=== PATIENT | male | born 1975 | race Caucasian/White ===

== ENCOUNTER 2023-08-08 10:29 | Emergency (ER) | payer SELFPAY ==
[2023-08-08] VITALS (15 sets, daily range): BP systolic 115–158; BP diastolic 84–96; PULSE 71–104; RESP 16; TEMP 36.8; O2SAT 93–98; BMI 31.6
--- NOTE | 2023-08-08 11:28 | ED_ITS ---
HPI - General Adult General Chief complaint: Chest Pain Stated complaint: chest pain, shortness of breath Time Seen by Provider: 08/08/23 11:28 History of Present Illness HPI narrative: c/o chest pain for the for the last few days, over by the arm pit area, tingling down left arm. pt stated they started spontaneously at work, with dizziness. pt states feeling lightheaded right now 47-year-old man presenting to the emergency department with concern of chest and arm discomfort over the last 3 days or so. Intermittently has been feeling lightheaded when ambulating. Asthma has also been flaring over the last few months. There may be an allergy trigger. Only has rescue inhaler. This chest pain quality which is not exactly specifically is at the left lateral chest and been fairly constant. Not pleuritic. Has also been experiencing some tingling in his sound left forearm and 4th and 5th fingers which were more numb yesterday than today. Not exactly reproducible. He does recall a history of carpal tunnel syndrome years ago but that apparently has resolved. Up in feeling weakness. Discomfort in his chest seems to be better when he lays down then onto his left side. Also better if he applies pressure just during to pulling at his left pectoralis. Thought maybe it hurts something. 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 Historically would not be experiencing any exercise intolerance but as noted seems more dyspneic with exertion which he has went on to asthma this point. Significant other seems to think that allergies might be playing a role in some of the symptoms. Related Data Previous Rx's Medication Instructions Recorded albuterol sulfate 2.5 mg/3 mL 2.5 mg (3 mL) inhalation Q4-6H PRN 01/10/23 (0.083 %) solution for nebulization bronchospasm #90 mL albuterol sulfate 90 mcg/actuation 2 puff PO Q4H PRN asthma #36 grams 01/10/23 aerosol inhaler amlodipine 10 mg tablet 10 mg PO DAILY #90 tabs 01/10/23 triamterene 37.5 1 tab PO DAILY #90 tabs 01/10/23 mg-hydrochlorothiazide 25 mg tablet Allergies Allergy/AdvReac Type Severity Reaction Status Date / Time No Known Allergies Allergy Verified 08/08/23 11:03 Review of Systems Status of ROS: Reports: 6 or more systems reviewed and unremarkable except as noted in History and below PFSH PFSH Medical History Urinary tract obstruction due to kidney stone ?N20.0 - Calculus of kidney (ICD-10) ?N13.8 - Other obstructive and reflux uropathy (ICD-10) Exacerbation of asthma ?J45.901 - Unspecified asthma with (acute) exacerbation (ICD-10) Social History Smoking Status: Never smoker Do you use any of these nicotine containing products: Smokeless Tobacco How often do you have a drink containing alcohol: 4 or more times a week How many standard drinks containing alcohol do you have on a typical day: 1 or 2 How often do you have six or more drinks on one occasion: Never AUDIT-C Alcohol total score: 4 Non-prescribed substance use: denies use Exam Narrative: Exam Narrative: Pleasant. NAD. Skin is warm and dry. Well-perfused peripherally without edema. Cranial nerves 2-12 intact. Lungs I think are clear but had sat up and there is some belching during the exam. Heart is in regular rate and rhythm. Abdomen is overweight soft and nontender. Palpation over the chest wall does not reproduce his discomfort. There is no supraclavicular crepitus. No exacerbation of sensory issues noted above to palpation of the ulnar groove or about the elbow otherwise. Negative Tinel's and Phalen's. No weakness. No pain or swelling to palpation in the left axilla. Strong distal pulses in the upper extremities. No edema. Const: Vital Signs, click to edit/add: Vital Signs - 24 hr 08/08/23 11:04 08/08/23 11:39 08/08/23 11:45 Temperature 98.2 F Pulse Rate 86 82 Pulse Rate [Pulse Oximeter] 104 H Respiratory Rate 16 Blood Pressure Blood Pressure [Ri ght Upper Arm] 158/96 H Pulse Oximetry 97 95 97 Oxygen Delivery Me thod Room Air 08/08/23 12:00 08/08/23 12:02 08/08/23 12:02 Temperature Pulse Rate 82 84 84 Pulse Rate [Pulse Oximeter] Respiratory Rate Blood Pressure 121/95 H 121/95 H Blood Pressure [Ri ght Upper Arm] Pulse Oximetry 97 96 96 Oxygen Delivery Me thod 08/08/23 12:15 08/08/23 12:30 08/08/23 12:31 Temperature Pulse Rate 79 78 78 Pulse Rate [Pulse Oximeter] Respiratory Rate Blood Pressure 125/84 Blood Pressure [Ri ght Upper Arm] Pulse Oximetry 97 96 93 Oxygen Delivery Me thod 08/08/23 12:45 08/08/23 13:00 08/08/23 13:01 Temperature Pulse Rate 79 73 76 Pulse Rate [Pulse Oximeter] Respiratory Rate Blood Pressure 121/85 Blood Pressure [Ri ght Upper Arm] Pulse Oximetry 98 94 96 Oxygen Delivery Me thod 08/08/23 13:15 08/08/23 13:30 08/08/23 13:31 Temperature Pulse Rate 71 73 77 Pulse Rate [Pulse Oximeter] Respiratory Rate Blood Pressure 115/90 H Blood Pressure [Ri ght Upper Arm] Pulse Oximetry 94 96 96 Oxygen Delivery Me thod 08/08/23 13:45 Temperature Pulse Rate 74 Pulse Rate [Pulse Oximeter] Respiratory Rate Blood Pressure Blood Pressure [Ri ght Upper Arm] Pulse Oximetry 96 Oxygen Delivery Me thod Documenting provider has reviewed patient's vital signs: yes Course Vital Signs Vital signs: Initial Vital Signs Temperature 98.2 F 08/08/23 11:04 Temperature Source Temporal Artery Scan 08/08/23 11:04 Pulse Rate 104 H 08/08/23 11:04 Respiratory Rate 16 08/08/23 11:04 Blood Pressure 158/96 H 08/08/23 11:04 Blood Pressure Mean 116 H 08/08/23 11:04 Blood Pressure Position Sitting 08/08/23 11:04 Pulse Oximetry 97 08/08/23 11:04 Oxygen Delivery Method Room Air 08/08/23 11:04 Vital Signs Temperature 98.2 F 08/08/23 11:04 Pulse Rate 104 H 08/08/23 11:04 Respiratory Rate 16 08/08/23 11:04 Blood Pressure 158/96 H 08/08/23 11:04 Pulse Oximetry 97 08/08/23 11:04 Oxygen Delivery Method Room Air 08/08/23 11:04 Temperature 98.2 F 08/08/23 11:04 Pulse Rate 74 08/08/23 13:45 Respiratory Rate 16 08/08/23 11:04 Blood Pressure 115/90 H 08/08/23 13:31 Pulse Oximetry 96 08/08/23 13:45 Oxygen Delivery Method Room Air 08/08/23 11:04 Medical Decision Making MDM Narrative Medical decision making narrative: His primary concern is potential heart attack. I have reviewed the EKG which is reassuring in a normal sinus rhythm without acute ischemic changes. Rate of 89. Pleuritis or costochondritis would have been in differential but not reproducible in this manner. Pneumothorax? Is perhaps there is a pneumonia though does not seem to be exhibiting infectious etiology otherwise. He has had some soreness in the left axillary area but otherwise I would think that the distal arm/hand symptoms and the chest pain is unrelated. Has not occurred with time of exertion which might be more consistent with thoracic outlet. At this point will monitor on awake overnight monitor for potentially arrhythmia. Chest x-ray. Labs looking for any recent ischemic cardiovascular event. Sounds like will need updating of asthma treatment otherwise. Chest x-ray reviewed by me looks to be without pneumothorax or infiltrate. Radiology over-read as below Final Report: INDICATION: Chest pain. Shortness of breath. TECHNIQUE: Chest 1 views. COMPARISON: None. FINDINGS: Cardiovascular and mediastinum: Cardiomediastinal silhouette is within normal limits. Lungs and pleural spaces: Lungs are clear. No sign of pleural effusion. No pneumothorax. Bones and soft tissues: No significant findings. IMPRESSION: No acute cardiopulmonary process identified. Labs are reassuring On reassessment, over time in the emergency department the numbness/tingling is feeling in the 4th 5th finger of his left hand is further faded. Still with a chest discomfort. Asking more about the exertion on dyspnea he has been noting he believes that he had COVID or something similar about a year ago and has felt like he has been more short of breath since that time but it has worsened over the last 3 months or so. He has been waking up at night to use his albuterol inhaler which then does resolve these symptoms. Possible esophageal reflux considering nocturnal timing? though not exclusive to this See patient discharge plan. Medical Records Medical records reviewed: Yes I reviewed the patient's medical records Lab Data Lab results reviewed: Yes I reviewed the patient's lab results Labs: Lab Results 08/08/23 08/08/23 Range/Units 11:43 11:55 WBC 7.09 (4.50-11.00) K/uL RBC 4.72 (4.30-5.90) m/uL Hgb 14.2 (13.5-17.5) gm/dL Hct 42.5 (37.0-53.0) % MCV 90 (80-100) fL MCH 30 (26-34) pg MCHC 33 (32-36) gm/dL RDW Coeff of [place] 12.4 (11.5-15.5) % Plt Count 329 (140-440) K/uL Neut % (Auto) 63.5 (42.0-72.0) % Lymph % (Auto) 23.1 (20-44) % [place] % (Auto) 10.3 (0.0-11.0) % Eos % (Auto) 2.0 (0.0-7.0) % Baso % (Auto) 0.8 (0.0-3.0) % Neut # (Auto) 4.50 (1.7-7.0) K/uL Lymph # (Auto) 1.64 (0.90-2.90) K/uL [place] # (Auto) 0.70 (0.00-0.90) K/UL Eos # (Auto) 0.14 (0.00-0.50) K/uL Baso # (Auto) 0.06 (0.00-0.30) K/uL Abs Immat Gran (auto) 0.02 (0.00-0.30) K/uL Imm/Tot Granulo (auto) 0.3 % D-Dimer Quant (PE/DVT) 0.03 (0.00-0.50) ug/ml Sodium 138 (135-149) mmol/L Potassium 3.8 (3.6-5.1) mmol/L Chloride 100 (96-114) mmol/L Carbon Dioxide 29 (20-32) mmol/L Anion Gap 9 (7-15) mEq/L BUN 24 (5-24) mg/dL Creatinine 0.9 (0.5-1.5) mg/dL Estimated Creat Clear 124.57 Estimated GFR 106 ml/min Glucose 124 H (60-115) mg/dL Calcium 10.0 (8.4-10.6) mg/dL Troponin I < 0.01 L (0.01-0.04) ng/mL C-Reactive Protein < 0.5 L (0.5-1.0) mg/dL NT-Pro-B Natriuret Pep 31 pg/mL POC Troponin I 0.00 L (0.01-0.04) ng/ml ECG Data Attestation: I personally reviewed and interpreted this ECG as follows: (Normal sinus rhythm. Appears to be interventricular conduction delay NS. Rate of 89) Discharge Plan Discharge Clinical Impression: Chest wall pain, Asthma, Exertional dyspnea, Peripheral neuropathy Patient Disposition: Home w/ Parent or Adult Condition: Improved Additional Instructions: It sounds like it would be time to follow-up your primary care provider to discuss this exertional shortness of breath you have been experiencing. This might include more formal assessment of your asthma to better direct treatment or may also include further evaluation of your heart, perhaps even a stress test of some sort. In the meantime you might consider taking an anti allergy medication like loratadine or fexofenadine daily. At this point I would take, maybe with a little food, 600 mg of ibuprofen 3 times a day over the next 5 days or alternatively 375-500mg of naproxen sodium twice a day over the same time period. Would reassess at that point. Otherwise return for marked increase in persistent shortness of breath, intensifying and persistent chest pain, new and focal weakness. Be seen also for worsening numbness. Prescriptions: No Action amlodipine 10 mg tablet 10 mg PO DAILY Qty: 90 3RF albuterol sulfate 90 mcg/actuation HFA aerosol inhaler 2 puff PO Q4H PRN (Reason: asthma) Qty: 36 12RF albuterol sulfate 2.5 mg /3 mL (0.083 %) solution for nebulization 2.5 mg inhalation Q4-6H PRN (Reason: bronchospasm) Qty: 90 5RF triamterene-hydrochlorothiazid 37.5-25 mg tablet 1 tab PO DAILY Qty: 90 3RF Follow Up/Referrals: Waqar Augustine MD [Primary Care Provider] - Stand Alone Forms: [employer] Info Instructions
--- NOTE | 2023-08-08 11:42 | XR_ITS ---
Patient: MENG HARGROVE Facility:?[facility] Patient ID:?[id number] Site Patient ID:?[id number]. Site :?[id number] Study:?XRay-Chest 1V-08/08/2023 12:17:18 PM Ordering Physician:?DR. OLMEDO Final Report: INDICATION: Chest pain. Shortness of breath. TECHNIQUE: Chest 1 views. COMPARISON: None. FINDINGS: Cardiovascular and mediastinum: Cardiomediastinal silhouette is within normal limits. Lungs and pleural spaces: Lungs are clear. No sign of pleural effusion. No pneumothorax. Bones and soft tissues: No significant findings. IMPRESSION: No acute cardiopulmonary process identified. Dictated by Jorden Navas MD @ 08/08/2023 12:40:00 PM Signed by:?Jorden Navas MD @08/08/2023 12:40:00 PM (Electronic Signature
[2023-08-08 12:04] LABS: Basophils Absolute Auto 0.06 K/uL (0.00-0.30); Basophils Percent Auto 0.8 % (0.0-3.0); Eosinophils Absolute Auto 0.14 K/uL (0.00-0.50); Hematocrit 42.5 % (37.0-53.0); Hemoglobin* 14.2 gm/dL (13.5-17.5); Immature Granulocytes Abs Auto 0.02 K/uL (0.00-0.30); Immature Granulocytes Pct Auto 0.3 %; Lymphocytes Absolute Auto 1.64 K/uL (0.90-2.90); Lymphocytes Percent Auto 23.1 % (20-44); Mean Corpuscular HGB Conc 33 gm/dL (32-36); Mean Corpuscular Hemoglobin 30 pg (26-34); Mean Corpuscular Volume 90 fL (80-100); Monocytes Percent Auto 10.3 % (0.0-11.0); Neutrophils Percent Auto 63.5 % (42.0-72.0); Platelet Count* 329 K/uL (140-440); RDW Coefficient of Variation % 12.4 % (11.5-15.5); Red Blood Count 4.72 m/uL (4.30-5.90); White Blood Count* 7.09 K/uL (4.50-11.00)
[2023-08-08 12:09] LABS: Slide Review Reflex No
[2023-08-08 12:18] LABS: Chloride* 100 mmol/L (96-114); Potassium* 3.8 mmol/L (3.6-5.1); Sodium* 138 mmol/L (135-149)
[2023-08-08 12:20] LABS: Creatinine* 0.9 mg/dL (0.5-1.5); Est. Creatinine Clearance* 124.57; Estimated Glomerular Filt Rate 106 ml/min
[2023-08-08 12:21] LABS: Anion Gap 9 mEq/L (7-15); Blood Urea Nitrogen* 24 mg/dL (5-24); Carbon Dioxide* 29 mmol/L (20-32)
[2023-08-08 12:22] LABS: Glucose* 124 mg/dL (60-115)
[2023-08-08 12:25] LABS: C Reactive Protein* < 0.5 mg/dL (0.5-1.0); D Dimer Quantitative* 0.03 ug/ml (0.00-0.50)
[2023-08-08 12:31] LABS: NT Pro B Type NatriureticPept* 31 pg/mL
[2023-08-08 12:34] LABS: Troponin I* < 0.01 ng/mL (0.01-0.04)
== END 2023-08-08 13:48 | disposition home or self-care (01) ==
PROVIDERS: Emergency Provider Family Medicine; PCP Family Medicine
DX: R07.89 Other chest pain (principal); J45.909 Unspecified asthma, uncomplicated; R06.00 Dyspnea, unspecified; G62.9 Polyneuropathy, unspecified
CPT/HCPCS: 36415; 71045; 80048; 83880; 84484; 85025; 85379; 86140; 93005; 94761; 99284; 99285